=== PATIENT | male | born 1985 | race African-American/Black ===

== ENCOUNTER 2019-01-09 15:56 | Emergency (ER) | payer BC, SELFPAY ==
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
[2019-01-09 16:42] LABS: Absolute Lymphocytes (CBC) 0.9 K/uL (0.7-4.9); Basophils % 0.7 % (0-1.3); Hematocrit 43.9 % (39.6-49.0); Lymphocytes % 20.6 % (15.3-44.8); MPV 8.9 fL (7.6-11.3); RBC Red Blood Cell Count 5.02 M/uL (4.33-5.43)
[2019-01-09 17:38] LABS: Barbiturates NEGATIVE (NEGATIVE); Benzodiazepines NEGATIVE (NEGATIVE); Cocaine NEGATIVE (NEGATIVE); METHAMPHETAM NEGATIVE (NEGATIVE); Methadone NEGATIVE (NEGATIVE); Opiates NEGATIVE (NEGATIVE); Phencyclidine POSITIVE (NEGATIVE); THC Cannibis NEGATIVE (NEGATIVE)
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
[2019-01-09 20:51] VITALS: BP 164/92; O2SAT 100
== END 2019-01-09 19:15 | disposition home or self-care (01) ==
LOC: ER 15:56
DX: S00.90XA Unspecified superficial injury of unspecified part of head, initial encounter (principal); V43.52XA Car driver injured in collision with other type car in traffic accident, initial encounter; Y93.89 Activity, other specified; Y92.410 Unspecified street and highway as the place of occurrence of the external cause
CPT/HCPCS: 85025; 80048; 36415; 80320; 86900; 86850; 86901; 80307 ×8; 70450; 72125; 71260; 74177; 99284; Q9967